=== PATIENT | female | born 1960 | race Caucasian/White ===

== ENCOUNTER 2019-12-06 14:23 | Emergency (ER) | payer OTHER ==
[~2019-12-06] VITALS: Ht 162.6 cm; Wt 65.8 kg
[2019-12-06 16:31] VITALS: BP 121/70
== END 2019-12-06 16:32 | disposition home or self-care (01) ==
LOC: M.ERS 14:23
DX: S01.01XA Laceration without foreign body of scalp, initial encounter (principal); N80.9 Endometriosis, unspecified; Z88.1 Allergy status to other antibiotic agents; W26.8XXA Contact with other sharp object(s), not elsewhere classified, initial encounter; Y93.89 Activity, other specified; Y92.89 Other specified places as the place of occurrence of the external cause; Y99.8 Other external cause status